=== PATIENT | male | born 1985 | race Hispanic/Latino ===

== ENCOUNTER 2021-11-24 08:09 | Emergency (ER) | payer BC ==
[2021-11-24 08:44] LABS: Hematocrit 44.6 % (39.6-49.0); Lymphocytes % 14.2 % (15.3-44.8); MPV 8.5 fL (7.6-11.3); RBC Red Blood Cell Count 5.38 M/uL (4.33-5.43)
[2021-11-24 09:12] LABS: Potassium 4.3 mmol/L (3.5-5.1)
--- NOTE | 2021-11-24 09:40 | RAD REPORT ---
EXAM DESCRIPTION: CT - Soft Tissue Neck W/Contr - 11/24/2021 9:32 am CLINICAL HISTORY: hemoptysis, left neck/throat pain COMPARISON: No comparisons TECHNIQUE: During dynamic enhancement using 100 milliliters nonionic IV contrast, axial 5 millimeter thick images of the neck were obtained. All CT scans are performed using dose optimization technique as appropriate and may include automated exposure control or mA/KV adjustment according to patient size. FINDINGS: Intracranial portion the exam is unremarkable. No globe or orbital content abnormality see n. Paranasal sinuses are clear except for minimal mucosal thickening along the floor of each maxillar y sinus. Mastoid air cells and middle ears are clear. No pharyngeal mucosal mass or asymmetry identifiable. No abnormal tonsillar or adenoid tissue enlarge ment seen. Tongue base and soft palate show no suspicious findings. Epiglottis, valleculae, piriform sinuses and laryngeal structures also without abnormal mass. Few small 10 mm or less bilateral cervical lymph nodes are present. No pathologic lymphadenopathy see n. The thyroid, submandibular and parotid glands show no suspicious findings. IMPRESSION: Patient has a few small nonspecific bilateral cervical lymph nodes. No pharyngeal mucosal mass or other abnormality that might explain the hemoptysis and/or hematemesis.
--- NOTE | 2021-11-24 10:12 | ER ---
Nurse's Notes [facility] Name: Jere Sheppard Age: 36 yrs Sex: Male : 1985 Arrival Date: 11/24/2021 Time: 08:18 Bed 14 Private MD: Diagnosis: Acute tonsillitis, unspecified-With bleeding Presentation: 11/24 08:19 Chief complaint: Patient states: sore throat and L ear pain that began 1 week ago. Pt ss reports that this morning while at work, he coughed up some blood and has done it a few times since it began. Coronavirus screen: Client denies travel out of the [place] in the last 14 days. Ebola Screen: Patient denies exposure to infectious person. Patient denies travel to an Ebola-affected area in the 21 days before illness onset. Initial Sepsis Screen: Does the patient meet any 2 criteria? No. Patient's initial sepsis screen is negative. Does the patient have a suspected source of infection? No. Patient's initial sepsis screen is negative. Risk Assessment: Do you want to hurt yourself or someone else? Patient reports no desire to harm self or others. Onset of symptoms was November 17, 2021. 08:19 Method Of Arrival: Ambulatory ss 08:19 Acuity: JOLIE 3 ss Historical: - Allergies: 08:21 No Known Allergies; ss - Home Meds: 08:21 None [Active]; ss - PMHx: 08:21 None; ss - PSHx: 08:21 None; ss - Immunization history:: Adult Immunizations up to date, Client reports receiving the 2nd dose of the Covid vaccine. - Social history:: Smoking status: Patient denies any tobacco usage or history of. - Family history:: not pertinent. - Hospitalizations: : No recent hospitalization is reported. Screenin:14 Abuse screen: Denies threats or abuse. Nutritional screening: No deficits noted. ll1 Tuberculosis screening: No symptoms or risk factors identified. Fall Risk IV access (20 points). Total Gordon Fall Scale indicates No Risk (0-24 pts). Assessment: 08:30 General: Appears in no apparent distress. Behavior is calm, cooperative, appropriate ll1 for age. Pain: Denies pain. Respiratory: Reports cough that is with blood. EENT: Reports cough/spitting up blood. 09:14 Reassessment: No changes from previously documented assessment. Patient and/or family ll1 updated on plan of care and expected duration. Pain level reassessed. Patient is alert, oriented x 3, equal unlabored respirations, skin warm/dry/pink. 10:15 Reassessment: No changes from previously documented assessment. Patient and/or family ll1 updated on plan of care and expected duration. Pain level reassessed. Patient is alert, oriented x 3, equal unlabored respirations, skin warm/dry/pink. Vital Signs: 08:19 BP 162 / 105; Pulse 59; Resp 14; Temp 97.7(TE); Pulse Ox 99% on R/A; Weight 70.76 kg; ss Height 5 ft. 5 in. (165.10 cm); Pain 0/10; 09:14 BP 154 / 109; Pulse 57; Resp 15; Pulse Ox 100% ; ll1 08:19 Body Mass Index 25.96 (70.76 kg, 165.10 cm) ED Course: 08:18 Patient arrived in ED. ss 08:18 Keagan Ashford MD is Attending Physician. rn 08:21 Triage completed. ss 08:21 Arm band placed on right wrist. ss 08:28 Cindy Tucker RN is Primary Nurse. ll1 08:30 Inserted saline lock: 20 gauge in right antecubital area, using aseptic technique. ll1 Blood collected. 09:14 Patient has correct armband on for positive identification. Bed in low position. Call ll1 light in reach. Side rails up X 1. Pulse ox on. NIBP on. 09:34 CT Soft Tissue Neck W/contr In Process Unspecified. EDMS 10:11 Kirsten Cuellar MD is Referral Physician. rn 10:20 No provider procedures requiring assistance completed. IV discontinued, intact, ll1 bleeding controlled, No redness/swelling at site. Pressure dressing applied. Administered Medications: 10:21 Drug: Viscous Lidocaine Liquid (4 %) 10 ml Route: Mucous Membrane; ll1 10:21 Follow up: Response: No adverse reaction ll1 Medication: 09:14 VIS not applicable for this client. ll1 Outcome: 10:11 Discharge ordered by . rn 10:21 Patient left the ED. ll1 10:21 Discharged to home ambulatory. ll1 10:21 Condition: stable 10:21 Discharge instructions given to patient, Instructed on discharge instructions, follow up and referral plans. Demonstrated understanding of instructions, follow-up care. Signatures: Dispatcher [employer] Keagan Ahuja MD MD rn [facility] CenterAlycia ball RN RN ss Cindy Tucker RN RN ll1
--- NOTE | 2021-11-24 10:12 | EDPHYS ---
Physician Documentation [facility] Name: Jere Sheppard Age: 36 yrs Sex: Male : 1985 Arrival Date: 11/24/2021 Time: 08:18 Bed 14 Private MD: ED Physician Keagan Ashford HPI: 11/24 08:38 This 36 yrs old Male presents to ER via Ambulatory with complaints of bleeding rn from throat. 08:38 The patient presents with sore throat, bleeding in throat. The patient describes throat rn pain as raw, scratchy. 08:39 Onset: The symptoms/episode began/occurred 1 week(s) ago. Severity of symptoms: At rn their worst the symptoms were mild, in the emergency department the symptoms are unchanged. Modifying factors: The symptoms are alleviated by nothing, the symptoms are aggravated by nothing. Associated signs and symptoms: Pertinent negatives fever, headache, shortness of breath. The patient has not experienced similar symptoms in the past. The patient has not recently seen a physician. Pt reports sore throat and earache for 1 week, taking abx, keflex, reports overall doing better but this AM began spitting up blood. Reports mild discomfort left jaw and throat, does not feel like is throwing up blood, denies cough. NO sob. No anticoagulants. . Historical: - Allergies: 08:21 No Known Allergies; ss - Home Meds: 08:21 None [Active]; ss - PMHx: 08:21 None; ss - PSHx: 08:21 None; ss - Immunization history:: Adult Immunizations up to date, Client reports receiving the 2nd dose of the Covid vaccine. - Social history:: Smoking status: Patient denies any tobacco usage or history of. - Family history:: not pertinent. - Hospitalizations: : No recent hospitalization is reported. ROS: 08:39 Constitutional: Negative for fever, chills, and weight loss, Eyes: Negative for injury, rn pain, redness, and discharge, ENT: + sore throat and blood in throat Neck: Negative for injury Cardiovascular: Negative for chest pain, palpitations, and edema, Respiratory: Negative for shortness of breath, cough, wheezing, and pleuritic chest pain, Abdomen/GI: Negative for abdominal pain, nausea, vomiting, diarrhea, and constipation, MS/Extremity: Negative for injury and deformity, Skin: Negative for injury, rash, and discoloration, Neuro: Negative for headache, weakness, numbness, tingling, and seizure. Exam: 08:39 Constitutional: This is a well developed, well nourished patient who is awake, alert, rn and in no acute distress. Head/Face: Normocephalic, atraumatic. ENT: + small 1 cm ulceration left tonsillar fossa, with slow bleeding, no stridor, no swelling. Handling secretions well. Neck: Trachea midline, nontender cervical LAD noted. No mass or crepitus. Cardiovascular: Regular rate and rhythm. No pulse deficits. Vital Signs: 08:19 BP 162 / 105; Pulse 59; Resp 14; Temp 97.7(TE); Pulse Ox 99% on R/A; Weight 70.76 kg; ss Height 5 ft. 5 in. (165.10 cm); Pain 0/10; 09:14 BP 154 / 109; Pulse 57; Resp 15; Pulse Ox 100% ; ll1 08:19 Body Mass Index 25.96 (70.76 kg, 165.10 cm) ss MDM: 08:18 Patient medically screened. rn 10:09 Differential diagnosis: hemorrhagic tonsillitis, tonsillitis, viral syndrome, rn malignancy. Data reviewed: vital signs, nurses notes, lab test result(s), radiologic studies, CT scan, and as a result, I will discharge patient. Counseling: I had a detailed discussion with the patient and/or guardian regarding: the historical points, exam findings, and any diagnostic results supporting the discharge/admit diagnosis, lab results, radiology results, the need for outpatient follow up, to return to the emergency department if symptoms worsen or persist or if there are any questions or concerns that arise at home. Response to treatment: the patient's symptoms have mildly improved after treatment, and as a result, I will discharge patient. Special discussion: I discussed with the patient/guardian in detail that at this point there is no indication for admission to the hospital. It is understood, however, that if the symptoms persist or worsen the patient needs to return immediately for re-evaluation. Based on the history and exam findings, there is no indication for further emergent testing or inpatient evaluation. I discussed with the patient/guardian the need to see the ENT specialist for further evaluation of the symptoms. ED course: Consulted with Dr. Dart, will see patient in clinic today at 12:45, patient states will go to clinic today. Bleeding has stopped and now clot on tonsil. . 11/24 08:26 Order name: CBC with Diff; Complete Time: 08:53 rn 11/24 08:26 Order name: Basic Metabolic Panel; Complete Time: 09:14 rn 11/24 08:26 Order name: IV Start; Complete Time: 08:28 rn 11/24 08:26 Order name: CT Soft Tissue Neck W/contr; Complete Time: 09:41 rn Administered Medications: 10:21 Drug: Viscous Lidocaine Liquid (4 %) 10 ml Route: Mucous Membrane; ll1 10:21 Follow up: Response: No adverse reaction ll1 Disposition Summary: 11/24/21 10:11 Discharge Ordered Location: Home rn Problem: new rn Symptoms: have improved rn Condition: Stable rn Diagnosis - Acute tonsillitis, unspecified - With bleeding rn Followup: rn - With: Kirsten Cuellar MD - When: Today - Reason: Recheck today's complaints, Re-evaluation by your physician Discharge Instructions: - Discharge Summary Sheet rn - Tonsillitis rn Forms: - Medication Reconciliation Form rn - Thank You Letter rn - Antibiotic [employer] - Prescription Opioid Use rn Signatures: Dispatcher [employer] Keagan Ahuja MD MD rn Smirch, Shelby, RN RN Cindy Smith RN RN ll1
[2021-11-24] MEDS ORDERED: LIDOCAINE VISCOUS 2% SOLN 15 ML UDC ONE (10:24)
[2021-11-24 11:31] VITALS: TEMP 97.7
[2021-11-24 11:33] VITALS: BP 154/109; O2SAT 100
== END 2021-11-24 10:21 | disposition home or self-care (01) ==
LOC: ER 08:09
DX: J03.90 Acute tonsillitis, unspecified (principal); R04.1 Hemorrhage from throat
CPT/HCPCS: 85025; 80048; 36415; 70491; Q9967

== ENCOUNTER → 2021-11-24 | Day surgery (SDC) | payer BC ==
[~2021-11-24] MED LIST: ACETAMINOPHEN 160 MG/5 ML UCUP ONE; ACETAMINOPHEN 500 MG TAB ONE; BUPIVACA 0.5%/EPI 0.0005%/PF 30 ML VIAL ONE; CELECOXIB 100 MG CAPSULE ONE; FENTANYL CITR 100 MCG/2 ML ONE; KETOROLAC 30 MG/ML INJ ONE; LABETALOL 20 MG/4ML SYRINGE IV ONE; LIDOCAINE 1% MPF 5 ML VIAL ONE; ONDANSETRON 4 MG/2 ML VIAL ONE; Ringers Lactate 1,000 ML IV ONE; SUCCINYLCHOLINE 20 MG/ML (10 ML) IV ONE; dexAMETHasone 10 MG/ML VIAL ONE; propofoL 200 MG/20 ML VIAL IV ONE
[2021-11-24 14:58] LABS: SARS-CoV-2 Antigen Rapid Res Negative (Negative)
[2021-11-24] MEDS: HYDROMORPHONE HCL 1 MG/ML INJ ONE ×2 (17:11→17:16)
[2021-11-24 17:21] VITALS: O2SAT 98
[2021-11-24 18:34] VITALS: TEMP 97.5
[2021-11-24 18:36] VITALS: BP 112/73
--- NOTE | 2021-11-25 05:26 | OP ---
Date of Procedure: 11/24/2021 Surgeon: ADRIÁN MCINTOSH Primary Care Physician: None. Preoperative Diagnoses: 1. Left oropharyngeal hemorrhage - suspected origin left tonsil. 2. Chronic left throat pain. 3. Chronic left otalgia. 4. Left tonsilolithiasis and tonsillitis. Postoperative Diagnoses: 1. Left oropharyngeal hemorrhage - left tonsil. 2. 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 3. Chronic left throat pain. 4. Chronic left otalgia. 5. Left tonsilolithiasis and tonsillitis. Procedures: 1. Left tonsillectomy. 2. Control of left tonsillar hemorrhage. Anesthesia: General endotracheal anesthesia was administered. I also infiltrated approximately 5 mL of 0.5% Marcaine with 1:200,000 epinephrine into the left tonsillar fossa and soft palate. Estimated Blood Loss: Less than 5 mL. Specimens: Left tonsil submitted to pathology for evaluation. Findings: Oozing of blood from the mid pole of the lateral aspect of the left tonsil. Friable mucosa at the area of bleeding. Suspect neoplasm involving lateral aspect of left tonsil at midpole level. Left tonsillitis and tonsilolithiasis. Right tonsil in normal shape and appearance with slight friable mucosa when palpated, but no evidence of infection or neoplasm. Complications: None. Disposition: Stable. The patient tolerated the procedure well. Indications For Procedure: The patient is a pleasant 36-year-old male who presented to my outpatient clinic with acute left tonsillar bleeding with no inciting events. The patient states that he woke up this morning with acute bleeding and coughing up bright red blood and blood clots. Examination revealed a friable left tonsil when compared to the right tonsil and evidence of bright red blood noted on the lateral aspect of the left tonsil. My concern was for malignancy. Thus, these were indications to bring the patient to operative suite for the above-mentioned procedure. He understood and all questions were answered. Risks versus benefits and complications were explained in detail, and a consent form was signed, which was placed on the chart. Description Of Procedure: The patient was transferred from the preoperative holding area to the operative suite by Department of Anesthesia, placed on the operating room table supine, sedated and intubated in the normal fashion. The tube was taped to the right oral commissure. The McIvor retractor was introduced into the right oral commissure and directed along the endotracheal tube and suspended from [facility]. Initially, I was going to take a tonsil biopsy, but noting that it was on the lateral aspect of the tonsil, I needed to get more lateral than where the suspected neoplasm was located. Thus, I performed a tonsillectomy by dissecting through the mucosa down the peritonsillar fascial plane with monopolar electrocautery on the twentieth setting of coagulation. Dissection continued within the plane whereby the inferior pole was amputated with suction Bovie. Saline irrigation was introduced in the oral cavity and removed with suction Bovie. Examination of the tonsil with a tonsil sponge did not reveal any areas of concern for neoplasm. However, the patient had friable mucosa with palpation of the right tonsil superior pole with a tonsil sponge. Thus, I cauterized the oozing with suction Bovie. The patient had general oozing of the left tonsillar fossa, and after attempts at cauterization, I decided to also place FloSeal into the left tonsillar fossa and was held in place for approximately 2 minutes with wet tonsil sponge. I then infiltrated approximately 5 mL of 0.5% Marcaine with 1:200,000 epinephrine at the left tonsillar fossa and soft palate. I retracted the soft palate inferiorly to inspect the adenoids. There was no evidence of adenoid tissue. I inserted a flexible orogastric tube into the esophagus and all fluid contents were removed. He tolerated the procedure well, and will be discharged home on analgesic medication as well as clindamycin antibiotic, and will follow up in 1 week or sooner if needed. I hand-carried the specimen to pathology and they will evaluate the specimen and will send results to my office. STAN/SAMUEL Voice ID: [id number] Report ID: [id number] TOM
== END ==
LOC: OR 13:22
PROVIDERS: ATTEND Otolaryngology Facial Plastic Surgery
PROC: 0CTPXZZ Resection of Tonsils, External Approach (ICD-10-PCS; principal; 2021-11-24 16:00)
DX: J03.90 Acute tonsillitis, unspecified (principal); H92.02 Otalgia, left ear; R07.0 Pain in throat; R04.1 Hemorrhage from throat; Z20.822 Contact with and (suspected) exposure to COVID-19
CPT/HCPCS: 42826; 36415; 88304; 87811; J2704; J0330; J3010; J1100; J1170; J7120; J2405 ×2